=== PATIENT | female | born 1955 | race Caucasian/White ===

== ENCOUNTER → 2017-08-24 | Outpatient (CLI) | payer MEDICARE, MEDICAID ==
[~2017-08-24] VITALS: Ht 152.4 cm; Wt 76.7 kg
[~2017-08-24] MED LIST: ALBU18HF2 IH; AMLO10TA80 PO; ASPI-1160 PO; CALC600T2 PO; CYCL5TAB PO; DOCU-138 PO; FAMO20TA8 PO; FERR325T6 PO; FLUO40CA49 PO; GABA-531 PO; GLIP10TA10 PO; HYDR-4001 PO; IBUP-2030 PO; LORA10TA7 PO; METF500T3 PO; METH-375 PO; OMEP20CA10 PO; [UNRECOGNIZED DRUG - CODE] PO
== END | disposition home or self-care (01) ==
LOC: RAD 10:41
PROVIDERS: ATTEND Neurological Surgery
DX: Z01.818 Encounter for other preprocedural examination (principal); M54.9 Dorsalgia, unspecified
CPT/HCPCS: 71046

== ENCOUNTER 2017-08-30 15:56 | Inpatient (IN) | payer MEDICARE, MEDICAID ==
[~2017-08-30] VITALS: Ht 152.4 cm; Wt 87.1 kg
[~2017-08-30 15:56] MED LIST changes: -ASPI-1160 PO; -CALC600T2 PO; -CYCL5TAB PO; -FAMO20TA8 PO; -FLUO40CA49 PO; -IBUP-2030 PO; -LORA10TA7 PO; -METF500T3 PO; -METH-375 PO
[2017-08-30 16:00] VITALS: BP 139/47
[2017-08-30] MEDS ORDERED: GUAIFENESIN 200MG/10ML SUGAR FREE UDC PO PRN (17:00)
[2017-08-30] MEDS: INSULIN LISPRO 100 UNITS/ML SUBCUT SCH ×2 (17:00→21:50)
[2017-08-30] MEDS ORDERED: BISACODYL 5MG TABLET PO PRN (17:00)
[2017-08-30] MEDS ORDERED: MORPHINE SULFATE 4 MG/ML CPJ (NOT FOR IM USE) IV PRN (17:00)
[2017-08-30] MEDS ORDERED: IPRATROPIUM/ALBUTEROL 0.5-3(2.5)MG/3ML NEB HHN PRN (17:00)
[2017-08-30] MEDS ORDERED: ONDANSETRON HCL 4MG/2ML VIAL IV PRN (17:00)
[2017-08-30] MEDS ORDERED: DEXTROSE 50% WATER 50ML SYRINGE IV PRN (17:00)
[2017-08-30] MEDS ORDERED: MAGNESIUM/ALUMINUM HYDROXIDE/SIMETHICONE 30ML UDC PO PRN (17:00)
[2017-08-30] MEDS ORDERED: ACETAMINOPHEN 325MG TABLET PO PRN (17:00)
[2017-08-30] MEDS: BLOOD SUGAR DIAGNOSTIC STRIP TEST SCH ×2 (17:29→21:50)
[2017-08-30] MEDS: CALCIUM CARBONATE 1250MG TABLET (500MG ELEMENTAL CALCIUM) PO SCH (17:42)
[2017-08-30] MEDS ORDERED: FAMOTIDINE 20MG TABLET PO SCH (18:00)
[2017-08-30 20:00] VITALS: BP 138/57
[2017-08-30] MEDS: FAMOTIDINE 20MG TABLET PO SCH (21:45)
[2017-08-30] MEDS: HYDROCODONE/ACETAMINOPHEN 5/325MG TABLET PO PRN (21:49)
[2017-08-30 22:59] LABS: CLARITY URINE CLEAR (CLEAR); COLOR URINE YELLOW (YELLOW); KETONES URINE NEGATIVE (NEGATIVE); LEUKOCYTE ESTERASE URINE NEGATIVE (NEGATIVE); NITRITE URINE NEGATIVE (NEGATIVE); OCCULT BLOOD URINE NEGATIVE (NEGATIVE); PROTEIN URINE NEGATIVE (NEGATIVE); SPECIFIC GRAVITY URINE 1.011 (1.005-1.030)
[2017-08-31] MEDS: DIPHENHYDRAMINE 25MG CAPSULE PO PRN ×3 (02:06→20:52)
[2017-08-31] MEDS: HYDROCODONE/ACETAMINOPHEN 5/325MG TABLET PO PRN ×5 (04:09→22:29)
[2017-08-31 06:34] LABS: BASOPHILS % 0.4 % (0.0-2.0); EOSINOPHILS % 4.3 % (0.0-5.0); HEMATOCRIT. 25.6 % (36.0-48.0); HEMOGLOBIN. 8.9 g/dL (12.0-16.0); LYMPHOCYTES % 14.3 % (20.0-50.0); MEAN CORPUSCULAR HEMOGLOBIN 29.1 pg (28.0-32.0); MEAN CORPUSCULAR VOLUME 83.2 fL (81.0-99.0); MEAN PLATELET VOLUME 8.3 fl (7.4-10.4); MONOCYTES % 9.7 % (2.0-8.0); NEUTROPHILS % 71.3 % (40.0-76.0); PLATELET 325 x1000/uL (130-400); RED BLOOD CELL COUNT 3.08 mill/uL (4.2-5.4); RED CELL DISTRIBUTION WIDTH 14.4 % (11.6-14.6)
[2017-08-31] MEDS: INSULIN LISPRO 100 UNITS/ML SUBCUT SCH ×4 (06:40→20:52)
[2017-08-31] MEDS: BLOOD SUGAR DIAGNOSTIC STRIP TEST SCH ×4 (06:40→20:52)
[2017-08-31 07:18] LABS: CHLORIDE 101 mEq/L (98-107)
[2017-08-31 07:28] LABS: PREALBUMIN 14.6 mg/dL (20.0-40.0)
[2017-08-31 08:00] VITALS: BP 168/69
[2017-08-31] MEDS: DOCUSATE SODIUM 250MG CAPSULE PO SCH (08:34)
[2017-08-31] MEDS: CALCIUM CARBONATE 1250MG TABLET (500MG ELEMENTAL CALCIUM) PO SCH ×2 (08:34→17:09)
[2017-08-31] MEDS: FAMOTIDINE 20MG TABLET PO SCH ×2 (08:34→20:52)
[2017-08-31 20:00] VITALS: BP 113/47
[2017-09-01] MEDS: BLOOD SUGAR DIAGNOSTIC STRIP TEST SCH ×4 (06:20→20:37)
[2017-09-01] MEDS: HYDROCODONE/ACETAMINOPHEN 5/325MG TABLET PO PRN ×3 (06:30→21:45)
[2017-09-01] MEDS: INSULIN LISPRO 100 UNITS/ML SUBCUT SCH ×4 (06:48→20:37)
[2017-09-01 08:00] VITALS: BP 134/54
[2017-09-01] MEDS: DOCUSATE SODIUM 250MG CAPSULE PO SCH (09:00)
[2017-09-01] MEDS: CALCIUM CARBONATE 1250MG TABLET (500MG ELEMENTAL CALCIUM) PO SCH ×2 (09:17→17:06)
[2017-09-01] MEDS: FAMOTIDINE 20MG TABLET PO SCH ×2 (09:17→20:37)
[2017-09-01] MEDS: DIPHENHYDRAMINE 25MG CAPSULE PO PRN ×2 (09:19→15:56)
[2017-09-01 19:38] LABS: CLARITY URINE CLOUDY (CLEAR); COLOR URINE YELLOW (YELLOW); KETONES URINE NEGATIVE (NEGATIVE); LEUKOCYTE ESTERASE URINE TRACE (NEGATIVE); NITRITE URINE NEGATIVE (NEGATIVE); OCCULT BLOOD URINE NEGATIVE (NEGATIVE); PH URINE 7.5 (4.5-8.0); PROTEIN URINE NEGATIVE (NEGATIVE); SPECIFIC GRAVITY URINE 1.019 (1.005-1.030); UROBILINOGEN URINE 0.2 E.U./dL (0.2-1.0)
[2017-09-01 20:00] VITALS: BP 136/53
[2017-09-02] MEDS: HYDROCODONE/ACETAMINOPHEN 5/325MG TABLET PO PRN ×3 (04:02→14:36)
[2017-09-02] MEDS: BLOOD SUGAR DIAGNOSTIC STRIP TEST SCH ×4 (06:24→20:08)
[2017-09-02] MEDS: INSULIN LISPRO 100 UNITS/ML SUBCUT SCH ×4 (06:45→20:08)
[2017-09-02 07:25] LABS: BASOPHILS % 0.4 % (0.0-2.0); EOSINOPHILS % 5.1 % (0.0-5.0); HEMATOCRIT. 27.1 % (36.0-48.0); HEMOGLOBIN. 9.3 g/dL (12.0-16.0); LYMPHOCYTES % 18.7 % (20.0-50.0); MEAN CORPUSCULAR HEMOGLOBIN 28.8 pg (28.0-32.0); MEAN CORPUSCULAR VOLUME 83.7 fL (81.0-99.0); MEAN PLATELET VOLUME 8.1 fl (7.4-10.4); MONOCYTES % 9.3 % (2.0-8.0); NEUTROPHILS % 66.5 % (40.0-76.0); PLATELET 439 x1000/uL (130-400); RED BLOOD CELL COUNT 3.24 mill/uL (4.2-5.4); RED CELL DISTRIBUTION WIDTH 14.2 % (11.6-14.6)
[2017-09-02 08:02] LABS: CHLORIDE 102 mEq/L (98-107)
[2017-09-02 08:17] VITALS: BP 151/60
[2017-09-02 08:21] LABS: HDL CHOLESTEROL 25 mg/dL (40-59); LDL CHOLESTEROL 132 mg/dL (5-100); PHOSPHORUS 5.4 mg/dL (2.5-4.9); TOTAL IRON BINDING CAPACITY 262 ug/dL (250-450)
[2017-09-02] MEDS: FAMOTIDINE 20MG TABLET PO SCH ×2 (08:22→20:08)
[2017-09-02] MEDS: DOCUSATE SODIUM 250MG CAPSULE PO SCH (08:22)
[2017-09-02] MEDS: CALCIUM CARBONATE 1250MG TABLET (500MG ELEMENTAL CALCIUM) PO SCH ×2 (08:22→17:43)
[2017-09-02] MEDS: DIPHENHYDRAMINE 25MG CAPSULE PO PRN (10:45)
[2017-09-02 12:39] LABS: FOLIC ACID (FOLATE) SERUM 7.4 ng/mL (>5.38)
[2017-09-02 20:00] VITALS: BP 133/47
[2017-09-02] MEDS: GABAPENTIN 100MG CAPSULE PO SCH (20:08)
[2017-09-03] MEDS: HYDROCODONE/ACETAMINOPHEN 5/325MG TABLET PO PRN ×4 (00:10→23:30)
[2017-09-03] MEDS: BLOOD SUGAR DIAGNOSTIC STRIP TEST SCH ×4 (06:01→20:49)
[2017-09-03] MEDS: INSULIN LISPRO 100 UNITS/ML SUBCUT SCH ×4 (06:01→20:49)
[2017-09-03 08:00] VITALS: BP 185/65
[2017-09-03] MEDS: DOCUSATE SODIUM 250MG CAPSULE PO SCH (09:00)
[2017-09-03] MEDS: DIPHENHYDRAMINE 25MG CAPSULE PO PRN ×3 (09:04→21:02)
[2017-09-03] MEDS: FAMOTIDINE 20MG TABLET PO SCH ×2 (09:32→21:01)
[2017-09-03] MEDS: CALCIUM CARBONATE 1250MG TABLET (500MG ELEMENTAL CALCIUM) PO SCH ×2 (09:32→16:55)
[2017-09-03] MEDS: FERROUS SULFATE 325MG TABLET PO SCH ×2 (13:28→16:55)
[2017-09-03 16:53] LABS: T4 FREE 1.5 ng/dL (0.76-1.46)
[2017-09-03 20:00] VITALS: BP 138/67
[2017-09-03] MEDS ORDERED: ATORVASTATIN CALCIUM 20MG TABLET PO SCH (21:00)
[2017-09-03] MEDS: GABAPENTIN 100MG CAPSULE PO SCH (21:01)
[2017-09-04] MEDS: CALCIUM CARBONATE 1250MG TABLET (500MG ELEMENTAL CALCIUM) PO SCH ×2 (00:18→08:38)
[2017-09-04] MEDS: CALCITRIOL 0.25MCG CAPSULE PO SCH ×2 (00:18→08:37)
[2017-09-04] MEDS ORDERED: COSYNTROPIN 0.25MG/ML VIAL IV NR (05:10)
[2017-09-04 05:23] LABS: BASOPHILS % 0.6 % (0.0-2.0); EOSINOPHILS % 4.6 % (0.0-5.0); HEMATOCRIT. 26.9 % (36.0-48.0); HEMOGLOBIN. 9.3 g/dL (12.0-16.0); LYMPHOCYTES % 26.8 % (20.0-50.0); MEAN CORPUSCULAR HEMOGLOBIN 29.1 pg (28.0-32.0); MEAN CORPUSCULAR VOLUME 83.8 fL (81.0-99.0); MEAN PLATELET VOLUME 7.8 fl (7.4-10.4); MONOCYTES % 8.1 % (2.0-8.0); NEUTROPHILS % 59.9 % (40.0-76.0); PLATELET 507 x1000/uL (130-400); RED BLOOD CELL COUNT 3.21 mill/uL (4.2-5.4); RED CELL DISTRIBUTION WIDTH 14.3 % (11.6-14.6)
[2017-09-04 05:40] LABS: CHLORIDE 102 mEq/L (98-107); PHOSPHORUS 5.7 mg/dL (2.5-4.9)
[2017-09-04] MEDS: BLOOD SUGAR DIAGNOSTIC STRIP TEST SCH ×2 (06:05→11:30)
[2017-09-04] MEDS: INSULIN LISPRO 100 UNITS/ML SUBCUT SCH ×2 (06:05→13:00)
[2017-09-04 07:28] VITALS: BP 137/58
[2017-09-04] MEDS: HYDROCODONE/ACETAMINOPHEN 5/325MG TABLET PO PRN (07:45)
[2017-09-04] MEDS: DOCUSATE SODIUM 250MG CAPSULE PO SCH (08:37)
[2017-09-04] MEDS: FERROUS SULFATE 325MG TABLET PO SCH ×2 (08:38→14:00)
[2017-09-04] MEDS: FAMOTIDINE 20MG TABLET PO SCH (08:38)
[2017-09-04] MEDS: DIPHENHYDRAMINE 25MG CAPSULE PO PRN ×2 (09:49→14:21)
[2017-09-04] MEDS ORDERED: CALCIUM GLUCONATE 1,000 MG in DEXT 5% WATER 90 ML IV NR (12:00)
[2017-09-04 12:54] VITALS: BP 137/58
[2017-09-05] MEDS ORDERED: ERGOCALCIFEROL 50000UNITS CAPSULE PO SCH (17:00)
[2017-09-06 19:08] LABS: 25-HYDROXY VITAMIN D3 27 ng/mL (.)
== END 2017-09-04 14:35 | disposition home or self-care (01) | DRG 551 ==
PROVIDERS: ADMIT Physical Medicine & Rehabilitation Spinal Cord Injury Medicine; ATTEND Internal Medicine
DX: M48.061 Spinal stenosis, lumbar region without neurogenic claudication (principal); G82.50 Quadriplegia, unspecified; M47.12 Other spondylosis with myelopathy, cervical region; E46 Unspecified protein-calorie malnutrition; E83.51 Hypocalcemia; M48.02 Spinal stenosis, cervical region; D50.9 Iron deficiency anemia, unspecified; E11.9 Type 2 diabetes mellitus without complications; E05.90 Thyrotoxicosis, unspecified without thyrotoxic crisis or storm; E20.9 Hypoparathyroidism, unspecified; G89.29 Other chronic pain; M54.5 Low back pain; K21.9 Gastro-esophageal reflux disease without esophagitis; J45.909 Unspecified asthma, uncomplicated; M43.16 Spondylolisthesis, lumbar region; R53.81 Other malaise; M79.609 Pain in unspecified limb; R26.9 Unspecified abnormalities of gait and mobility; I10 Essential (primary) hypertension; E55.9 Vitamin D deficiency, unspecified; K59.00 Constipation, unspecified; E78.5 Hyperlipidemia, unspecified; E78.00 Pure hypercholesterolemia, unspecified; E21.3 Hyperparathyroidism, unspecified; Z91.041 Radiographic dye allergy status; Z91.040 Latex allergy status; Z79.4 Long term (current) use of insulin; Z90.710 Acquired absence of both cervix and uterus; Z79.899 Other long term (current) drug therapy; Z82.49 Family history of ischemic heart disease and other diseases of the circulatory system
CPT/HCPCS: 36415; 80048; 80053; 80061; 81003; 82024; 82088; 82270; 82306; 82330; 82533; 82607; 82728; 82746; 82962; 83036; 83520; 83540; 83550; 83735; 84100; 84134; 84439; 84443; 84481; 84630; 85025; 87086; 93970; 97110; 97116; 97162; 97166; 97530; 97535; J0610; J0834; J1815; J2270; J7050; J7060; Q0163

== ENCOUNTER → 2017-09-09 | Outpatient (CLI) | payer MEDICARE, MEDICAID ==
[~2017-09-09] MED LIST changes: -ALBU18HF2 IH; -AMLO10TA80 PO; -FERR325T6 PO; -GABA-531 PO; -GLIP10TA10 PO; -HYDR-4001 PO; -OMEP20CA10 PO; -[UNRECOGNIZED DRUG - CODE] PO
== END | disposition home or self-care (01) ==
LOC: NM 07:24
PROVIDERS: ATTEND Internal Medicine Endocrinology, Diabetes & Metabolism
DX: E05.90 Thyrotoxicosis, unspecified without thyrotoxic crisis or storm (principal)
CPT/HCPCS: 78014; A9516